=== PATIENT | male | born 1985 | race Caucasian/White ===

== ENCOUNTER → 2016-04-29 | Outpatient (CLI) | payer BC, OTHER | LOC: US 11:22 | DX: R59.1 Generalized enlarged lymph nodes (principal); E65 Localized adiposity | CPT/HCPCS: 76536 ==

== ENCOUNTER → 2020-06-11 | Outpatient (CLI) | payer OTHER | LOC: EXRD 15:14 | DX: S80.12XA Contusion of left lower leg, initial encounter (principal); R60.0 Localized edema | CPT/HCPCS: 93971 ==

== ENCOUNTER → 2020-06-12 | Outpatient (CLI) | payer OTHER | LOC: KOH-I 13:54 | DX: M23.92 Unspecified internal derangement of left knee (principal); S80.02XA Contusion of left knee, initial encounter | CPT/HCPCS: 73721 ==